=== PATIENT | male | born 1975 | race Two or more races ===

== ENCOUNTER 2019-12-05 05:43 | Day surgery (SDC) | payer OTHER ==
[2019-12-05] MEDS ORDERED: ALEVE220 M1 PO (11:17)
[2019-12-05] MEDS ORDERED: PERCOCET 5-3251 EACH PO (11:17)
[2019-12-05] MEDS ORDERED: DUI500 PO (11:17)
== END 2019-12-05 15:50 | disposition home or self-care (01) ==
LOC: CIR.AMB 05:43
PROVIDERS: ATTEND Orthopaedic Surgery
DX: S52.532A Colles' fracture of left radius, initial encounter for closed fracture (principal); Z51.89 Encounter for other specified aftercare
CPT/HCPCS: 25609; 20902; C1776